=== PATIENT | female | born 1985 | race Caucasian/White ===

== ENCOUNTER 2022-01-17 18:06 | Emergency (ER) | payer OTHER ==
[2022-01-17] MEDS ORDERED: NORCO 5-325 TA1 EACH PO (21:40)
== END 2022-01-17 22:00 | disposition home or self-care (01) ==
LOC: FER 18:06
DX: S83.92XA Sprain of unspecified site of left knee, initial encounter (principal); Z28.310 Unvaccinated for COVID-19; X50.1XXA Overexertion from prolonged static or awkward postures, initial encounter
CPT/HCPCS: 73560